=== PATIENT | male | born 1980 | race Caucasian/White ===

== ENCOUNTER 2018-10-12 08:12 | Inpatient (IN) | payer SELFPAY ==
[2018-10-12 08:54] VITALS: BMI 26.4
--- NOTE | 2018-10-12 09:17 | HP ---
CIWA Score Nausea/Vomitin-No Nausea/No Vomiting Muscle Tremors: None Anxiety: 4-Mod. Anxious/Guarded Agitation: 4-Moderately Restless Paroxysmal Sweats: No Perspiration Orientation: 1-Uncertain about Date Tacttile Disturbances: 0-None Auditory Disturbances: 0-None Visual Disturbances: 0-None Headache: 0-None Present CIWA-Ar Total Score: 9 - Admission Criteria OASAS Guidelines: Admission for Medically Managed Detox: Requires at least one of the followin. CIWA greater than 12 2. Seizures within the past 24 hours 3. Delirium tremens within the past 24 hours 4. Hallucinations within the past 24 hours 5. Acute intervention needed for co occurring medical disorder 6. Acute intervention needed for co occurring psychiatric disorder 7. Severe withdrawal that cannot be handled at a lower level of care (continued vomiting, continued diarrhea, abnormal vital signs) requiring intravenous medication and/or fluids 8. Admission ROS S - HPI Allergies/Adverse Reactions: Allergies Allergy/AdvReac Type Severity Reaction Status Date / Time shellfish derived Allergy Severe Hives Verified 10/12/18 08:43 No Known Drug Allergies Allergy Verified 10/12/18 10:00 History of Present Illness: pt here requesting detox from etoh use , reports use x 16 years , current daily use 1 pint liquor /day , latest use this morning , reports was in detox @ [facility] on Saturday , left AMA after 2 - day stay , relapsed in the evening of the day of d/c , current symptoms as above . Denies seizures , blackouts , + tremors , reports prior sobriety x 9 mo , relapse 3 weeks ago 2/2 family situation . Starts drinking upon awakening . cocaine : 500$ every 2-3 days . tobacco :" sometimes " PMHX : asthma PSHX : denies PSych : denies Exam Limitations: No Limitations - Ebola screening Have you traveled outside of the country in the last 21 days: No (N) Have you had contact with anyone from an Ebola affected area: No Do you have a fever: No - Review of Systems Constitutional: No Symptoms Reported EENT: reports: No Symptoms Reported Respiratory: reports: No Symptoms reported Cardiac: reports: No Symptoms Reported GI: reports: No Symptoms Reported : reports: No Symptoms Reported Musculoskeletal: reports: Back Pain (x1 week after jumping off roof into shallow pool , pain rated as 8/10 , constant .) Integumentary: reports: No Symptoms Reported Neuro: reports: No Symptoms reported Endocrine: reports: No Symptoms Reported Psychiatric: reports: Orientated x3, Agitated, Anxious Patient History - Smoking Cessation Smoking history: Current some day smoker Have you smoked in the past 12 months: No Hx Chewing Tobacco Use: No Initiated information on smoking cessation: No - Substances abused Alcohol Substance route: Oral Frequency: Daily Amount used: 5 (40ounces) , 1 pint Age of first use: 10 Date of last use: 10/12/18 Cocaine Substance route: Inhalation Frequency: 3-6 times per week Amount used: $500 Age of first use: 23 Date of last use: 10/11/18 Admission Physical Exam BHS - Vital Signs Vital Signs: Vital Signs - 24 hr 10/12/18 08:42 Temperature 97.2 F L Pulse Rate 91 H Respiratory 18 Rate Blood Pressure 110/71 - Physical General Appearance: Yes: Mild Distress, Irritable, Anxious HEENTM: Yes: EOMI, Normocephalic, Normal Voice Respiratory: Yes: Lungs Clear, Normal Breath Sounds, No Respiratory Distress, No Accessory Muscle Use Neck: Yes: No masses,lesions,Nodules, Trachea in good position Cardiology: Yes: Regular Rhythm, Regular Rate, S1, S2 Abdominal: Yes: Non Tender, Soft Back: Yes: Muscle Spasm (thoraco-lumbar paraspinal) Musculoskeletal: Yes: Gait Steady Extremities: Yes: Normal Range of Motion, Non-Tender Neurological: Yes: Alert, Motor Strength 5/5 Integumentary: Yes: Warm - Diagnostic (1) Alcohol dependence Current Visit: Yes Status: Acute Qualifiers: Substance use status: uncomplicated Qualified Code(s): F10.20 - Alcohol dependence, uncomplicated Breathalyzer - Breathalyzer Breathalyzer: 0.007 Inpatient Rehab Admission - Rehab Decision to Admit Inpatient rehab admission?: No
[2018-10-12] MEDS ORDERED: NICOTINE POLACRILEX 2 MG GUM BUC PRN (09:23)
[2018-10-12] MEDS ORDERED: MENTHOL/PHENOL 1 EACH UD MM PRN (09:23)
[2018-10-12] MEDS ORDERED: METHOCARBAMOL 500 MG TABLET PO PRN (09:23)
[2018-10-12] MEDS ORDERED: MAGNESIUM HYDROX 2400MG/30ML ORAL SUSPENSION 30 ML CUP PO PRN (09:23)
[2018-10-12] MEDS ORDERED: MAG HYDROX/AL HYDROX/SIMETH 30 ML UNIT-DOSE CUP PO PRN (09:23)
[2018-10-12] MEDS ORDERED: MAGNESIUM CITRATE 300 ML BOTTLE PO PRN (09:23)
[2018-10-12] MEDS ORDERED: BISMUTH SUBSALICYLATE 524 MG/30 ML UD PO PRN (09:23)
[2018-10-12] MEDS ORDERED: ACETAMINOPHEN 325 MG TABLET (FP) PO PRN ×2 (09:23)
[2018-10-12] MEDS ORDERED: ALBUTEROL SO4 0.083% IH SOL 2.5 MG/3 ML VIAL.NEB. NEB PRN (09:25)
[2018-10-12] MEDS: PRENATAL VITAMINS W/ FOLIC ACID TABLET (FP) PO SCH (10:33)
[2018-10-12] MEDS: diazePAM 5 MG TABLET PO SCH ×2 (15:00→22:38)
[2018-10-12] MEDS: THIAMINE HCL 100 MG TABLET (FP) PO SCH (22:38)
[2018-10-12] MEDS: MELATONIN 5 MG TABLETS PO PRN (22:39)
[2018-10-12] MEDS: ALBUTEROL SO4 8 GM HFA INHALER IH PRN (23:02)
[2018-10-13] MEDS: diazePAM 5 MG TABLET PO SCH ×3 (05:25→22:10)
[2018-10-13] MEDS: PRENATAL VITAMINS W/ FOLIC ACID TABLET (FP) PO SCH (09:21)
[2018-10-13] MEDS: diazePAM 5 MG TABLET PO PRN ×3 (09:23→20:35)
[2018-10-13 10:40] LABS: HEMATOCRIT 42.8 % (35.4-49); HEMOGLOBIN 14.4 GM/dL (11.7-16.9); MCH 27.9 pg (25.7-33.7); MCHC 33.8 g/dl (32.0-35.9); MEAN CELL VOLUME 82.5 fl (80-96); MEAN PLT VOLUME 8.4 fl (7.5-11.1); PLATELET COUNT 311 K/MM3 (134-434); RBC 5.19 M/mm3 (4.00-5.60); RDW 14.7 % (11.9-15.9); WHITE BLOOD COUNT 5.8 K/mm3 (4.0-10.0)
[2018-10-13 10:54] LABS: ALBUMIN 3.4 g/dl (3.4-5.0); BILIRUBIN,TOTAL 0.3 mg/dL (0.2-1); BLOOD UREA NITROGEN 15.3 mg/dL (7-18); CALCIUM 8.9 mg/dL (8.5-10.1); POTASSIUM 4.3 mmol/L (3.5-5.1); TOT PROT 6.3 g/dl (6.4-8.2)
--- NOTE | 2018-10-13 12:34 | PN ---
S CIWA - CIWA Score Nausea/Vomitin-Mild Nausea/No Vomiting Muscle Tremors: 3 Anxiety: 2 Agitation: 3 Paroxysmal Sweats: 1-Minimal Palms Moist Orientation: 1-Uncertain about Date Tacttile Disturbances: 1-Very Mild Itch/Numbness Auditory Disturbances: 0-None Visual Disturbances: 0-None Headache: 0-None Present CIWA-Ar Total Score: 12 BHS Progress Note (SOAP) Subjective: 38 years old male admitted on 10/12/18 for alcohol withdrawal sx history of asthma added to problem list as well as ventolin ordered Objective: 10/13/18 12:34 Vital Signs Temperature 97.7 F 10/13/18 09:11 Pulse Rate 91 H 10/13/18 09:11 Respiratory Rate 20 10/13/18 09:11 Blood Pressure 108/70 10/13/18 09:11 O2 Sat by Pulse Oximetry (%) Laboratory Last Values WBC 5.8 K/mm3 (4.0-10.0) 10/13/18 07:00 RBC 5.19 M/mm3 (4.00-5.60) 10/13/18 07:00 Hgb 14.4 GM/dL (11.7-16.9) 10/13/18 07:00 Hct 42.8 % (35.4-49) 10/13/18 07:00 MCV 82.5 fl (80-96) 10/13/18 07:00 MCH 27.9 pg (25.7-33.7) 10/13/18 07:00 MCHC 33.8 g/dl (32.0-35.9) 10/13/18 07:00 RDW 14.7 % (11.9-15.9) 10/13/18 07:00 Plt Count 311 K/MM3 (134-434) 10/13/18 07:00 MPV 8.4 fl (7.5-11.1) 10/13/18 07:00 Sodium 141 mmol/L (136-145) 10/13/18 07:00 Potassium 4.3 mmol/L (3.5-5.1) 10/13/18 07:00 Chloride 106 mmol/L (98-107) 10/13/18 07:00 Carbon Dioxide 29 mmol/L (21-32) 10/13/18 07:00 Anion Gap 5 MMOL/L (8-16) L 10/13/18 07:00 BUN 15.3 mg/dL (7-18) 10/13/18 07:00 Creatinine 1.0 mg/dL (0.55-1.3) 10/13/18 07:00 Est GFR (CKD-EPI)AfAm 108.63 10/13/18 07:00 Est GFR (CKD-EPI)NonAf 93.73 10/13/18 07:00 Random Glucose 92 mg/dL (74-106) 10/13/18 07:00 Calcium 8.9 mg/dL (8.5-10.1) 10/13/18 07:00 Total Bilirubin 0.3 mg/dL (0.2-1) 10/13/18 07:00 AST 9 U/L (15-37) L 10/13/18 07:00 ALT 19 U/L (13-61) 10/13/18 07:00 Alkaline Phosphatase 98 U/L (45-117) 10/13/18 07:00 Total Protein 6.3 g/dl (6.4-8.2) L 10/13/18 07:00 Albumin 3.4 g/dl (3.4-5.0) 10/13/18 07:00 RPR Titer Nonreactive (NONREACTIVE) 10/13/18 07:00 lab noted Assessment: 10/13/18 12:34 alcohol withdrawal sx Plan: continue alcohol detox
[2018-10-13] MEDS: THIAMINE HCL 100 MG TABLET (FP) PO SCH (22:11)
[2018-10-13] MEDS: MELATONIN 5 MG TABLETS PO PRN (22:11)
[2018-10-13] MEDS: ALBUTEROL SO4 8 GM HFA INHALER IH PRN (23:07)
[2018-10-14] MEDS: diazePAM 5 MG TABLET PO SCH ×2 (06:05→17:29)
[2018-10-14] MEDS: hydrOXYzine HCL 25 MG TABLET (FP) PO PRN ×2 (10:45→22:25)
[2018-10-14] MEDS: PRENATAL VITAMINS W/ FOLIC ACID TABLET (FP) PO SCH (10:45)
[2018-10-14] MEDS: diazePAM 5 MG TABLET PO PRN ×3 (10:47→20:08)
[2018-10-14] MEDS: IBUPROFEN 400 MG TABLET (FP) PO PRN ×2 (10:48→23:21)
--- NOTE | 2018-10-14 11:36 | PN ---
[facility] CIWA - CIWA Score Nausea/Vomitin-Mild Nausea/No Vomiting Muscle Tremors: 2 Anxiety: 3 Agitation: 3 Paroxysmal Sweats: 1-Minimal Palms Moist Orientation: 1-Uncertain about Date Tacttile Disturbances: 0-None Auditory Disturbances: 0-None Visual Disturbances: 0-None Headache: 0-None Present CIWA-Ar Total Score: 11 S Progress Note (SOAP) Subjective: negative x ray of the lower spine and right foot encourage warm and cold compress to paralower spine and right foot motrin if needed lidocan patch to lower back for comfort Objective: 10/14/18 11:35 Vital Signs Temperature 97.3 F L 10/14/18 09:09 Pulse Rate 84 10/14/18 09:09 Respiratory Rate 20 10/14/18 09:09 Blood Pressure 127/85 10/14/18 09:09 O2 Sat by Pulse Oximetry (%) Laboratory Last Values WBC 5.8 K/mm3 (4.0-10.0) 10/13/18 07:00 RBC 5.19 M/mm3 (4.00-5.60) 10/13/18 07:00 Hgb 14.4 GM/dL (11.7-16.9) 10/13/18 07:00 Hct 42.8 % (35.4-49) 10/13/18 07:00 MCV 82.5 fl (80-96) 10/13/18 07:00 MCH 27.9 pg (25.7-33.7) 10/13/18 07:00 MCHC 33.8 g/dl (32.0-35.9) 10/13/18 07:00 RDW 14.7 % (11.9-15.9) 10/13/18 07:00 Plt Count 311 K/MM3 (134-434) 10/13/18 07:00 MPV 8.4 fl (7.5-11.1) 10/13/18 07:00 Sodium 141 mmol/L (136-145) 10/13/18 07:00 Potassium 4.3 mmol/L (3.5-5.1) 10/13/18 07:00 Chloride 106 mmol/L (98-107) 10/13/18 07:00 Carbon Dioxide 29 mmol/L (21-32) 10/13/18 07:00 Anion Gap 5 MMOL/L (8-16) L 10/13/18 07:00 BUN 15.3 mg/dL (7-18) 10/13/18 07:00 Creatinine 1.0 mg/dL (0.55-1.3) 10/13/18 07:00 Est GFR (CKD-EPI)AfAm 108.63 10/13/18 07:00 Est GFR (CKD-EPI)NonAf 93.73 10/13/18 07:00 Random Glucose 92 mg/dL (74-106) 10/13/18 07:00 Calcium 8.9 mg/dL (8.5-10.1) 10/13/18 07:00 Total Bilirubin 0.3 mg/dL (0.2-1) 10/13/18 07:00 AST 9 U/L (15-37) L 10/13/18 07:00 ALT 19 U/L (13-61) 10/13/18 07:00 Alkaline Phosphatase 98 U/L (45-117) 10/13/18 07:00 Total Protein 6.3 g/dl (6.4-8.2) L 10/13/18 07:00 Albumin 3.4 g/dl (3.4-5.0) 10/13/18 07:00 RPR Titer Nonreactive (NONREACTIVE) 10/13/18 07:00 lab noted Assessment: 10/14/18 11:36 alcohol withdrawal sx Plan: continue alcohol detox
[2018-10-14] MEDS: LIDOCAINE 5% TOPICAL PATCH TP SCH (12:09)
[2018-10-14] MEDS ORDERED: LIDOCAINE PATCH REMOVAL MC SCH (22:00)
[2018-10-14] MEDS: THIAMINE HCL 100 MG TABLET (FP) PO SCH (22:24)
[2018-10-14] MEDS: MELATONIN 5 MG TABLETS PO PRN (22:25)
[2018-10-15] MEDS: diazePAM 5 MG TABLET PO PRN (00:04)
[2018-10-15] MEDS ORDERED: diazePAM 5 MG TABLET PO ONE (06:00)
[2018-10-15] MEDS: IBUPROFEN 400 MG TABLET (FP) PO PRN (06:15)
[2018-10-15 09:21] VITALS: BP 120/84; PULSE 89; TEMP 97
[2018-10-15] MEDS: LIDOCAINE 5% TOPICAL PATCH TP SCH (11:38)
[2018-10-15] MEDS: PRENATAL VITAMINS W/ FOLIC ACID TABLET (FP) PO SCH (11:38)
--- NOTE | 2018-10-15 13:58 | DS ---
[facility] Detox Discharge Summary Admission Date: 10/12/18 Discharge Date: 10/15/18 - History Present History: Alcohol Dependence Additional Comments: 38 years old male admitted on 10/12/18 for alcohol withdrawal sx doing well with valium detox regimen no complication throughout the detox stay alert oriented x 3 S1S1 clear lung bilaterally abdomen soft none tenderness aftercare [facility] with transportation provided Pertinent Past History: asthma - Physical Exam Results Vital Signs: Vital Signs Temperature 97.0 F L 10/15/18 09:20 Pulse Rate 89 10/15/18 09:20 Respiratory Rate 18 10/15/18 09:20 Blood Pressure 120/84 10/15/18 09:20 O2 Sat by Pulse Oximetry (%) Pertinent Admission Physical Exam Findings: alcohol withdrawal sx Laboratory Last Values WBC 5.8 K/mm3 (4.0-10.0) 10/13/18 07:00 RBC 5.19 M/mm3 (4.00-5.60) 10/13/18 07:00 Hgb 14.4 GM/dL (11.7-16.9) 10/13/18 07:00 Hct 42.8 % (35.4-49) 10/13/18 07:00 MCV 82.5 fl (80-96) 10/13/18 07:00 MCH 27.9 pg (25.7-33.7) 10/13/18 07:00 MCHC 33.8 g/dl (32.0-35.9) 10/13/18 07:00 RDW 14.7 % (11.9-15.9) 10/13/18 07:00 Plt Count 311 K/MM3 (134-434) 10/13/18 07:00 MPV 8.4 fl (7.5-11.1) 10/13/18 07:00 Sodium 141 mmol/L (136-145) 10/13/18 07:00 Potassium 4.3 mmol/L (3.5-5.1) 10/13/18 07:00 Chloride 106 mmol/L (98-107) 10/13/18 07:00 Carbon Dioxide 29 mmol/L (21-32) 10/13/18 07:00 Anion Gap 5 MMOL/L (8-16) L 10/13/18 07:00 BUN 15.3 mg/dL (7-18) 10/13/18 07:00 Creatinine 1.0 mg/dL (0.55-1.3) 10/13/18 07:00 Est GFR (CKD-EPI)AfAm 108.63 10/13/18 07:00 Est GFR (CKD-EPI)NonAf 93.73 10/13/18 07:00 Random Glucose 92 mg/dL (74-106) 10/13/18 07:00 Calcium 8.9 mg/dL (8.5-10.1) 10/13/18 07:00 Total Bilirubin 0.3 mg/dL (0.2-1) 10/13/18 07:00 AST 9 U/L (15-37) L 10/13/18 07:00 ALT 19 U/L (13-61) 10/13/18 07:00 Alkaline Phosphatase 98 U/L (45-117) 10/13/18 07:00 Total Protein 6.3 g/dl (6.4-8.2) L 10/13/18 07:00 Albumin 3.4 g/dl (3.4-5.0) 10/13/18 07:00 RPR Titer Nonreactive (NONREACTIVE) 10/13/18 07:00 lab noted - Treatment Hospital Course: Detox Protocol Followed, Detoxed Safely, Responded well, Discharged Condition Good, Rehab Referral Accepted Patient has Accepted a Rehab Referral to: [facility] - Medication Discharge Medications: Ambulatory Orders Albuterol Sulfate Inhaler - [Ventolin HFA Inhaler -] 1 - 2 inh PO Q4H #1 inhaler 10/14/18 - Diagnosis (1) Asthma Status: Chronic Qualifiers: Asthma severity: mild Asthma persistence: intermittent Asthma complication type: with status asthmaticus Qualified Code(s): J45.22 - Mild intermittent asthma with status asthmaticus (2) Alcohol dependence Status: Acute Qualifiers: Substance use status: uncomplicated Qualified Code(s): F10.20 - Alcohol dependence, uncomplicated - AMA Did Patient Leave Against Medical Advice: No
== END 2018-10-15 13:25 | disposition home or self-care (01) | DRG 775 ==
LOC: YASAS 08:12 → Y3N 09:32
PROVIDERS: ADMIT Surgery; ATTEND Surgery
PROC: HZ2ZZZZ Detoxification Services for Substance Abuse Treatment (ICD-10-PCS; principal; 2018-10-12)
DX: F10.230 Alcohol dependence with withdrawal, uncomplicated (principal); J45.22 Mild intermittent asthma with status asthmaticus; Z91.013 Allergy to seafood
CPT/HCPCS: 36415; 72220-TC-FY; 73630-TC-RT-FY; 80053; 85027; 86593; 94640

== ENCOUNTER 2022-07-28 14:28 | Inpatient (IN) | payer BC ==
[~2022-07-28 14:28] MED LIST: TRIMETHOBENZAMIDE HCL 200MG/2ML INJ IM ONE
[2022-07-28 16:24] VITALS: BMI 23.7
[2022-07-28] MEDS ORDERED: LOPERAMIDE HCL 2 MG CAPSULE PO PRN (16:43)
[2022-07-28] MEDS ORDERED: MAG HYDROX/AL HYDROX/SIMETH 30 ML UNIT-DOSE CUP PO PRN (16:43)
[2022-07-28] MEDS ORDERED: NALOXONE HCL 0.4 MG/ML VIAL IM PRN (16:43)
[2022-07-28] MEDS ORDERED: BENZONATATE 200 MG CAPSULE PO PRN (16:43)
[2022-07-28] MEDS ORDERED: NICOTINE POLACRILEX 2 MG GUM BUC PRN (16:43)
[2022-07-28] MEDS ORDERED: DICYCLOMINE HCL 10 MG CAPSULE PO PRN (16:43)
[2022-07-28] MEDS ORDERED: NALOXONE HCL (KLOXXADO) 8 MG SPRAY NS PRN (16:43)
[2022-07-28] MEDS ORDERED: MAGNESIUM HYDROX 2400MG/30ML ORAL SUSPENSION 30 ML CUP PO PRN (16:43)
[2022-07-28] MEDS ORDERED: BENZOCAINE/MENTHOL (CHLORASEPTIC ) LOZENGE MM PRN (16:43)
[2022-07-28] MEDS ORDERED: ACETAMINOPHEN 325 MG TABLET (FP) PO PRN (16:43)
[2022-07-28] MEDS ORDERED: ONDANSETRON *ODT* 4 MG TABLET SL PRN (16:43)
[2022-07-28] MEDS ORDERED: BISMUTH SUBSALICYLATE 524 MG/30 ML PO PRN (16:43)
[2022-07-28] MEDS ORDERED: guaiFENesin 600 MG TABLET.ER (FP) PO PRN (16:43)
[2022-07-28] MEDS ORDERED: POLYETHYLENE GLYCOL (HEALTHYLAX) 3350 17 GM PACKET PO PRN (16:43)
[2022-07-28] MEDS ORDERED: IBUPROFEN 400 MG TABLET (FP) PO PRN (16:43)
[2022-07-28] MEDS ORDERED: LORazepam 2 MG TABLET ONE (17:01)
[2022-07-28] MEDS: LORazepam 2 MG TABLET PO SCH ×2 (17:06→22:04)
[2022-07-28] MEDS: LORazepam 1 MG TABLET PO PRN (19:37)
[2022-07-28] MEDS: MELATONIN 5 MG TABLETS PO SCH (22:04)
[2022-07-28] MEDS: THIAMINE HCL 100 MG TABLET (FP) PO SCH (22:04)
[2022-07-28] MEDS: METHOCARBAMOL 500 MG TABLET PO PRN (22:04)
[2022-07-28] MEDS: hydrOXYzine PAMOATE 25 MG CAPSULE (FP) PO PRN (23:53)
[2022-07-29] MEDS: LORazepam 2 MG TABLET PO SCH ×4 (05:24→22:16)
[2022-07-29] MEDS: METHOCARBAMOL 500 MG TABLET PO PRN ×3 (05:26→22:16)
[2022-07-29] MEDS: PRENATAL VITAMINS W/ FOLIC ACID TABLET (FP) PO SCH (10:49)
[2022-07-29] MEDS: hydrOXYzine PAMOATE 25 MG CAPSULE (FP) PO PRN (10:53)
[2022-07-29] MEDS: IBUPROFEN 600 MG TABLET (FP) PO PRN ×2 (10:53→20:02)
[2022-07-29 11:01] LABS: HEMOGLOBIN 13.3 GM/dL (11.7-16.9); MCH 27.6 pg (25.7-33.7); MCHC 34.1 g/dl (32.0-35.9); MEAN CELL VOLUME 81.1 fl (80-96); MEAN PLT VOLUME 8.3 fl (7.5-11.1); PLATELET COUNT 215 10^3/uL (134-434); RBC 4.81 M/mm3 (4.00-5.60); RDW 14.1 % (11.9-15.9); WHITE BLOOD COUNT 5.7 K/mm3 (4.0-10.0)
[2022-07-29] MEDS: NICOTINE 7 MG/24 HOURS TOPICAL PATCH TD SCH (11:06)
[2022-07-29 11:08] LABS: CALCIUM 8.8 mg/dL (8.5-10.1)
[2022-07-29 11:09] LABS: ALBUMIN 3.2 g/dl (3.4-5.0)
[2022-07-29] MEDS: ALBUTEROL SO4 HFA INHALER IH SCH ×5 (11:11→22:18)
[2022-07-29 11:13] LABS: BILIRUBIN,TOTAL 1.7 mg/dL (0.2-1); TOT PROT 6.3 g/dl (6.4-8.2)
[2022-07-29] MEDS: LORazepam 1 MG TABLET PO PRN ×2 (12:43→19:58)
[2022-07-29] MEDS: LACTULOSE 20 GM/30 ML UDC (FOR ORAL USE ONLY) PO SCH ×2 (14:43→22:16)
[2022-07-29] MEDS: MELATONIN 5 MG TABLETS PO SCH (22:16)
[2022-07-29] MEDS: THIAMINE HCL 100 MG TABLET (FP) PO SCH (22:16)
[2022-07-30] MEDS: LORazepam 1 MG TABLET PO PRN ×2 (02:34→12:03)
[2022-07-30] MEDS: ALBUTEROL SO4 HFA INHALER IH SCH ×3 (02:37→10:13)
[2022-07-30] MEDS: LACTULOSE 20 GM/30 ML UDC (FOR ORAL USE ONLY) PO SCH (05:31)
[2022-07-30] MEDS: LORazepam 1 MG TABLET PO SCH ×2 (05:31→10:11)
[2022-07-30] MEDS: METHOCARBAMOL 500 MG TABLET PO PRN ×2 (05:32→12:02)
[2022-07-30] MEDS: IBUPROFEN 600 MG TABLET (FP) PO PRN (05:32)
[2022-07-30] MEDS: NICOTINE 7 MG/24 HOURS TOPICAL PATCH TD SCH (10:10)
[2022-07-30] MEDS: PRENATAL VITAMINS W/ FOLIC ACID TABLET (FP) PO SCH (10:10)
[2022-07-30 12:59] VITALS: BP 115/70; PULSE 75; RESP 17; TEMP 98.4
[2022-07-31] MEDS ORDERED: LORazepam 0.5 MG TABLET PO PRN
[2022-07-31] MEDS ORDERED: LORazepam 0.5 MG TABLET PO SCH (05:00)
[2022-08-01] MEDS ORDERED: LORazepam 0.5 MG TABLET PO ONE (05:00)
== END 2022-07-30 13:22 | disposition left against medical advice (07) | DRG 770 ==
LOC: YASAS 14:28 → Y3N 17:03
PROVIDERS: ADMIT Allergy & Immunology; ATTEND Surgery
PROC: HZ2ZZZZ Detoxification Services for Substance Abuse Treatment (ICD-10-PCS; principal; 2022-07-28)
DX: F10.230 Alcohol dependence with withdrawal, uncomplicated (principal); F17.210 Nicotine dependence, cigarettes, uncomplicated; F41.9 Anxiety disorder, unspecified; F32.A Depression, unspecified; J45.20 Mild intermittent asthma, uncomplicated; R17 Unspecified jaundice; R79.89 Other specified abnormal findings of blood chemistry; Z59.02 Unsheltered homelessness
CPT/HCPCS: 36415; 80053; 82140; 85027; 86780; C9803-CS; Q0162; U0003; U0005

== ENCOUNTER 2022-08-08 11:06 | Inpatient (IN) | payer BC ==
[2022-08-08 12:24] VITALS: BMI 24.4
[2022-08-08] MEDS ORDERED: NALOXONE HCL (KLOXXADO) 8 MG SPRAY NS PRN (15:30)
[2022-08-08] MEDS ORDERED: NICOTINE 10 MG CARTRIDGE (INHALER) IH PRN (15:30)
[2022-08-08] MEDS ORDERED: ONDANSETRON *ODT* 4 MG TABLET SL PRN (15:30)
[2022-08-08] MEDS ORDERED: COLLOIDAL OATMEAL 1 BAR EACH TP PRN (15:30)
[2022-08-08] MEDS ORDERED: DICYCLOMINE HCL 10 MG CAPSULE PO PRN (15:30)
[2022-08-08] MEDS ORDERED: LOPERAMIDE HCL 2 MG CAPSULE PO PRN (15:30)
[2022-08-08] MEDS ORDERED: guaiFENesin 600 MG TABLET.ER (FP) PO PRN (15:30)
[2022-08-08] MEDS ORDERED: chlordiazePOXIDE HCL 25 MG CAPSULE PO ONE (15:30)
[2022-08-08] MEDS ORDERED: NALOXONE HCL 0.4 MG/ML VIAL IM PRN (15:30)
[2022-08-08] MEDS ORDERED: IBUPROFEN 600 MG TABLET (FP) PO PRN (15:30)
[2022-08-08] MEDS ORDERED: IBUPROFEN 400 MG TABLET (FP) PO PRN (15:30)
[2022-08-08] MEDS ORDERED: POLYETHYLENE GLYCOL (HEALTHYLAX) 3350 17 GM PACKET PO PRN (15:30)
[2022-08-08] MEDS ORDERED: ACETAMINOPHEN 325 MG TABLET (FP) PO PRN (15:30)
[2022-08-08] MEDS ORDERED: BENZOCAINE/MENTHOL (CHLORASEPTIC ) LOZENGE MM PRN (15:30)
[2022-08-08] MEDS ORDERED: BISMUTH SUBSALICYLATE 262 MG/15 ML BTL PO PRN (15:30)
[2022-08-08] MEDS ORDERED: AMMONIUM LACTATE 12% LOTION 225 GM BOTTLE TP PRN (15:30)
[2022-08-08] MEDS ORDERED: MAG HYDROX/AL HYDROX/SIMETH 30 ML UNIT-DOSE CUP PO PRN (15:30)
[2022-08-08] MEDS ORDERED: BENZONATATE 200 MG CAPSULE PO PRN (15:30)
[2022-08-08] MEDS ORDERED: MAGNESIUM HYDROX 2400MG/30ML ORAL SUSPENSION 30 ML CUP PO PRN (15:30)
[2022-08-08] MEDS ORDERED: chlordiazePOXIDE HCL 25 MG CAPSULE ONE (15:39)
[2022-08-08] MEDS ORDERED: ONDANSETRON *ODT* 4 MG TABLET ONE (15:40)
[2022-08-08] MEDS: chlordiazePOXIDE HCL 25 MG CAPSULE PO SCH ×2 (17:22→22:05)
[2022-08-08] MEDS: ALBUTEROL SO4 HFA INHALER IH SCH ×4 (17:25→23:54)
[2022-08-08] MEDS: METHOCARBAMOL 500 MG TABLET PO PRN (18:35)
[2022-08-08] MEDS ORDERED: THIAMINE HCL 100 MG TABLET (FP) PO SCH (22:00)
[2022-08-08] MEDS ORDERED: MELATONIN 5 MG TABLETS PO SCH (22:00)
[2022-08-09] MEDS: ALBUTEROL SO4 HFA INHALER IH SCH ×3 (04:38→10:54)
[2022-08-09] MEDS: chlordiazePOXIDE HCL 25 MG CAPSULE PO SCH ×2 (05:20→10:03)
[2022-08-09] MEDS: METHOCARBAMOL 500 MG TABLET PO PRN (07:12)
[2022-08-09 09:36] VITALS: BP 134/87; PULSE 92; RESP 17; TEMP 97.3
[2022-08-09] MEDS ORDERED: PRENATAL VITAMINS W/ FOLIC ACID TABLET (FP) PO SCH (10:00)
[2022-08-09 11:06] LABS: HEMATOCRIT 39.1 % (35.4-49); HEMOGLOBIN 13.4 GM/dL (11.7-16.9); MCH 28.3 pg (25.7-33.7); MCHC 34.3 g/dl (32.0-35.9); MEAN CELL VOLUME 82.5 fl (80-96); PLATELET COUNT 379 10^3/uL (134-434); RBC 4.74 M/mm3 (4.00-5.60); RDW 14.8 % (11.9-15.9); WHITE BLOOD COUNT 6.4 K/mm3 (4.0-10.0)
[2022-08-09 11:12] LABS: POTASSIUM 4.5 mmol/L (3.5-5.1)
[2022-08-09 11:26] LABS: ALBUMIN 3.4 g/dl (3.4-5.0); BLOOD UREA NITROGEN 8.6 mg/dL (7-18)
[2022-08-09 11:29] LABS: CREATININE 1.1 mg/dL (0.55-1.3)
[2022-08-09 11:31] LABS: BILIRUBIN,TOTAL 0.7 mg/dL (0.2-1)
[2022-08-10] MEDS ORDERED: chlordiazePOXIDE HCL 25 MG CAPSULE PO SCH (05:00)
[2022-08-11] MEDS ORDERED: chlordiazePOXIDE HCL 10 MG CAPSULE PO SCH (05:00)
[2022-08-12] MEDS ORDERED: chlordiazePOXIDE HCL 10 MG CAPSULE PO SCH (05:00)
[2022-08-13] MEDS ORDERED: chlordiazePOXIDE HCL 10 MG CAPSULE PO ONE (05:00)
== END 2022-08-09 10:54 | disposition left against medical advice (07) | DRG 770 ==
LOC: YASAS 11:06 → Y6N 15:40
PROVIDERS: ADMIT Allergy & Immunology; ATTEND Surgery
PROC: HZ2ZZZZ Detoxification Services for Substance Abuse Treatment (ICD-10-PCS; principal; 2022-08-08)
DX: F10.230 Alcohol dependence with withdrawal, uncomplicated (principal); F17.210 Nicotine dependence, cigarettes, uncomplicated; J45.20 Mild intermittent asthma, uncomplicated
CPT/HCPCS: 36415; 80053; 82140; 85027; 86780; 87811; C9803-CS; Q0162; U0003; U0005

== ENCOUNTER 2023-04-28 14:05 | Inpatient (IN) | payer OTHER ==
[2023-04-28 15:16] VITALS: BMI 27.1
[2023-04-28] MEDS ORDERED: MAG HYDROX/AL HYDROX/SIMETH 30 ML UNIT-DOSE CUP PO PRN (15:32)
[2023-04-28] MEDS ORDERED: DICYCLOMINE HCL 10 MG CAPSULE PO PRN (15:32)
[2023-04-28] MEDS ORDERED: hydrOXYzine PAMOATE 25 MG CAPSULE (FP) PO PRN (15:32)
[2023-04-28] MEDS ORDERED: METHOCARBAMOL 500 MG TABLET PO PRN (15:32)
[2023-04-28] MEDS ORDERED: guaiFENesin 600 MG TABLET.ER (FP) PO PRN (15:32)
[2023-04-28] MEDS ORDERED: IBUPROFEN 400 MG TABLET (FP) PO PRN (15:32)
[2023-04-28] MEDS ORDERED: MAGNESIUM HYDROX 2400MG/30ML ORAL SUSPENSION 30 ML CUP PO PRN (15:32)
[2023-04-28] MEDS ORDERED: BENZOCAINE/MENTHOL (CHLORASEPTIC ) LOZENGE MM PRN (15:32)
[2023-04-28] MEDS ORDERED: BISMUTH SUBSALICYLATE 524 MG/30 ML PO PRN (15:32)
[2023-04-28] MEDS ORDERED: POLYETHYLENE GLYCOL (HEALTHYLAX) 3350 17 GM PACKET PO PRN (15:32)
[2023-04-28] MEDS ORDERED: IBUPROFEN 600 MG TABLET (FP) PO PRN (15:32)
[2023-04-28] MEDS ORDERED: BENZONATATE 200 MG CAPSULE PO PRN (15:32)
[2023-04-28] MEDS ORDERED: ACETAMINOPHEN 325 MG TABLET (FP) PO PRN (15:32)
[2023-04-28] MEDS ORDERED: LOPERAMIDE HCL 2 MG CAPSULE PO PRN (15:32)
[2023-04-28] MEDS ORDERED: P-EPHED 60MG/TRIPROLIDI 2.5MG TABLET PO PRN (15:32)
[2023-04-28] MEDS ORDERED: hydrOXYzine PAMOATE 25 MG CAPSULE (FP) PO ONE (15:57)
[2023-04-28] MEDS ORDERED: METHOCARBAMOL 500 MG TABLET ONE (16:02)
[2023-04-28] MEDS ORDERED: chlordiazePOXIDE HCL 25 MG CAPSULE PO PRN (16:03)
[2023-04-28] MEDS ORDERED: ONDANSETRON *ODT* 4 MG TABLET ONE (16:03)
[2023-04-28] MEDS: ONDANSETRON *ODT* 4 MG TABLET SL PRN (16:10)
[2023-04-28] MEDS: ALBUTEROL SO4 HFA INHALER IH SCH ×3 (16:38→22:41)
[2023-04-28] MEDS: MELATONIN 5 MG TABLETS PO SCH (22:40)
[2023-04-28] MEDS: chlordiazePOXIDE HCL 25 MG CAPSULE PO SCH (22:41)
[2023-04-28] MEDS: THIAMINE HCL 100 MG TABLET (FP) PO SCH (22:41)
[2023-04-29] MEDS: ALBUTEROL SO4 HFA INHALER IH SCH ×6 (03:20→22:34)
[2023-04-29] MEDS: chlordiazePOXIDE HCL 25 MG CAPSULE PO SCH ×4 (05:31→22:25)
[2023-04-29 10:14] LABS: HEMATOCRIT 39.5 % (35.4-49); HEMOGLOBIN 13.5 GM/dL (11.7-16.9); MCH 28.1 pg (25.7-33.7); MCHC 34.1 g/dl (32.0-35.9); MEAN CELL VOLUME 82.4 fl (80-96); MEAN PLT VOLUME 8.5 fl (7.5-11.1); PLATELET COUNT 292 10^3/uL (134-434); RDW 13.7 % (11.9-15.9)
[2023-04-29] MEDS: PRENATAL VITAMINS W/ FOLIC ACID TABLET (FP) PO SCH (10:14)
[2023-04-29] MEDS: ONDANSETRON *ODT* 4 MG TABLET SL PRN (10:16)
[2023-04-29 10:18] LABS: POTASSIUM 4.3 mmol/L (3.5-5.1)
[2023-04-29 10:23] LABS: CALCIUM 8.6 mg/dL (8.5-10.1)
[2023-04-29 10:24] LABS: ALBUMIN 3.3 g/dl (3.4-5.0); BLOOD UREA NITROGEN 12.1 mg/dL (7-18)
[2023-04-29 10:28] LABS: BILIRUBIN,TOTAL 0.9 mg/dL (0.2-1)
[2023-04-29 10:29] LABS: TOT PROT 6.3 g/dl (6.4-8.2)
[2023-04-29] MEDS: MELATONIN 5 MG TABLETS PO SCH (22:25)
[2023-04-29] MEDS: THIAMINE HCL 100 MG TABLET (FP) PO SCH (22:26)
[2023-04-30] MEDS: ALBUTEROL SO4 HFA INHALER IH SCH ×3 (02:33→10:30)
[2023-04-30] MEDS: chlordiazePOXIDE HCL 25 MG CAPSULE PO SCH ×2 (05:26→10:29)
[2023-04-30 08:47] VITALS: BP 117/60; PULSE 62; RESP 16; TEMP 98
[2023-04-30] MEDS: PRENATAL VITAMINS W/ FOLIC ACID TABLET (FP) PO SCH (10:29)
[2023-05-01] MEDS ORDERED: chlordiazePOXIDE HCL 10 MG CAPSULE PO PRN
[2023-05-01] MEDS ORDERED: chlordiazePOXIDE HCL 10 MG CAPSULE PO SCH (05:00)
[2023-05-02] MEDS ORDERED: chlordiazePOXIDE HCL 10 MG CAPSULE PO SCH (05:00)
[2023-05-03] MEDS ORDERED: chlordiazePOXIDE HCL 10 MG CAPSULE PO ONE (05:00)
== END 2023-04-30 10:55 | disposition left against medical advice (07) | DRG 770 ==
LOC: YASAS 14:05 → Y3N 16:46
PROVIDERS: ADMIT Allergy & Immunology; ATTEND Allergy & Immunology
PROC: HZ2ZZZZ Detoxification Services for Substance Abuse Treatment (ICD-10-PCS; principal; 2023-04-28)
DX: F10.230 Alcohol dependence with withdrawal, uncomplicated (principal); F14.10 Cocaine abuse, uncomplicated; Z72.0 Tobacco use
CPT/HCPCS: 36415; 80053; 85027; 86780; 87635; 87811; Q0162

== ENCOUNTER 2023-06-06 10:16 | Inpatient (IN) | payer OTHER ==
[2023-06-06 11:00] VITALS: BMI 24.6
[2023-06-06] MEDS ORDERED: BISMUTH SUBSALICYLATE 524 MG/30 ML PO PRN (13:27)
[2023-06-06] MEDS ORDERED: POLYETHYLENE GLYCOL (HEALTHYLAX) 3350 17 GM PACKET PO PRN (13:27)
[2023-06-06] MEDS ORDERED: NALOXONE HCL (KLOXXADO) 8 MG SPRAY NS PRN (13:27)
[2023-06-06] MEDS ORDERED: LOPERAMIDE HCL 2 MG CAPSULE PO PRN (13:27)
[2023-06-06] MEDS ORDERED: MAGNESIUM HYDROX 2400MG/30ML ORAL SUSPENSION 30 ML CUP PO PRN (13:27)
[2023-06-06] MEDS ORDERED: ACETAMINOPHEN 325 MG TABLET (FP) PO PRN (13:27)
[2023-06-06] MEDS ORDERED: BENZOCAINE/MENTHOL (CHLORASEPTIC ) LOZENGE MM PRN (13:27)
[2023-06-06] MEDS ORDERED: BENZONATATE 200 MG CAPSULE PO PRN (13:27)
[2023-06-06] MEDS ORDERED: guaiFENesin 600 MG TABLET.ER (FP) PO PRN (13:27)
[2023-06-06] MEDS ORDERED: IBUPROFEN 400 MG TABLET (FP) PO PRN (13:27)
[2023-06-06] MEDS ORDERED: NALOXONE HCL 0.4 MG/ML VIAL IM PRN (13:27)
[2023-06-06] MEDS ORDERED: MAG HYDROX/AL HYDROX/SIMETH 30 ML UNIT-DOSE CUP PO PRN (13:27)
[2023-06-06] MEDS: TRIMETHOBENZAMIDE HCL 200MG/2ML INJ IM ONE (13:36)
[2023-06-06] MEDS: LORazepam 2 MG/ML SDV VIAL IM ONE (14:47)
[2023-06-06] MEDS: METHOCARBAMOL 500 MG TABLET PO PRN (17:11)
[2023-06-06] MEDS: chlordiazePOXIDE HCL 25 MG CAPSULE PO SCH (17:11)
[2023-06-06] MEDS: hydrOXYzine PAMOATE 25 MG CAPSULE (FP) PO PRN (17:12)
[2023-06-06] MEDS: MELATONIN 5 MG TABLETS PO SCH (22:21)
[2023-06-06] MEDS: THIAMINE HCL 100 MG TABLET (FP) PO SCH (22:21)
[2023-06-06] MEDS: IBUPROFEN 600 MG TABLET (FP) PO PRN (22:21)
[2023-06-07] MEDS: PRENATAL VITAMINS W/ FOLIC ACID TABLET (FP) PO SCH (10:16)
[2023-06-07 12:49] LABS: HEMATOCRIT 39.1 % (35.4-49); HEMOGLOBIN 13.1 GM/dL (11.7-16.9); MCH 28.8 pg (25.7-33.7); MCHC 33.5 g/dl (32.0-35.9); MEAN CELL VOLUME 85.9 fl (80-96); MEAN PLT VOLUME 8.9 fl (7.5-11.1); PLATELET COUNT 225 10^3/uL (134-434); RBC 4.55 M/mm3 (4.00-5.60); RDW 16.5 % (11.9-15.9); WHITE BLOOD COUNT 5.5 K/mm3 (4.0-10.0)
[2023-06-07 13:08] LABS: POTASSIUM 3.8 mmol/L (3.5-5.1)
[2023-06-07 13:10] LABS: BLOOD UREA NITROGEN 14.5 mg/dL (7-18); CALCIUM 8.7 mg/dL (8.5-10.1)
[2023-06-07 13:11] LABS: ALBUMIN 3.6 g/dl (3.4-5.0)
[2023-06-07 13:14] LABS: CREATININE 0.9 mg/dL (0.55-1.3)
[2023-06-07 13:15] LABS: TOT PROT 6.8 g/dl (6.4-8.2)
[2023-06-07] MEDS: ONDANSETRON *ODT* 4 MG TABLET SL PRN (15:19)
[2023-06-07] MEDS: chlordiazePOXIDE HCL 25 MG CAPSULE PO PRN (19:56)
[2023-06-08] MEDS: chlordiazePOXIDE HCL 25 MG CAPSULE PO SCH (05:40)
[2023-06-08] MEDS: DICYCLOMINE HCL 10 MG CAPSULE PO PRN (05:42)
[2023-06-08] MEDS: LACTULOSE 20 GM/30 ML UDC (FOR ORAL USE ONLY) PO SCH (22:19)
[2023-06-09] MEDS: chlordiazePOXIDE HCL 10 MG CAPSULE PO SCH (05:52)
[2023-06-09] MEDS: chlordiazePOXIDE HCL 10 MG CAPSULE PO PRN (13:07)
[2023-06-09] MEDS ORDERED: ALBUTEROL SO4 HFA INHALER IH PRN (15:16)
[2023-06-09] MEDS ORDERED: LORazepam 1 MG TABLET PO PRN (15:27)
[2023-06-09] MEDS: hydrOXYzine PAMOATE 25 MG CAPSULE (FP) PO PRN (15:51)
[2023-06-09] MEDS: LORazepam 1 MG TABLET PO SCH (17:17)
[2023-06-09] MEDS: SUVOREXANT 10 MG TABLET PO PRN (22:18)
[2023-06-10] MEDS ORDERED: chlordiazePOXIDE HCL 10 MG CAPSULE PO SCH (05:00)
[2023-06-10] MEDS: LORazepam 0.5 MG TABLET PO SCH (05:48)
[2023-06-10] MEDS: NALTREXONE HCL 50 MG TABLET PO SCH (16:01)
[2023-06-11] MEDS ORDERED: chlordiazePOXIDE HCL 10 MG CAPSULE PO ONE (05:00)
[2023-06-11] MEDS: LORazepam 0.5 MG TABLET PO ONE (05:26)
[2023-06-11 09:24] VITALS: RESP 18
[2023-06-11 09:28] VITALS: BP 141/81; PULSE 85; TEMP 98.4
== END 2023-06-11 09:24 | disposition home or self-care (01) | DRG 774 ==
LOC: YASAS 10:16 → Y6N 14:04
PROVIDERS: ADMIT Allergy & Immunology; ATTEND Surgery
PROC: HZ2ZZZZ Detoxification Services for Substance Abuse Treatment (ICD-10-PCS; principal; 2023-06-06)
DX: F10.230 Alcohol dependence with withdrawal, uncomplicated (principal); F14.10 Cocaine abuse, uncomplicated; F10.24 Alcohol dependence with alcohol-induced mood disorder; F41.9 Anxiety disorder, unspecified; F32.A Depression, unspecified; E72.20 Disorder of urea cycle metabolism, unspecified; J45.20 Mild intermittent asthma, uncomplicated; R74.01 Elevation of levels of liver transaminase levels; Z87.891 Personal history of nicotine dependence; Z56.0 Unemployment, unspecified; Z59.00 Homelessness unspecified
CPT/HCPCS: 36415; 80053; 80305; 80307; 82140; 84450; 85027; 86780; 87635; 93005; 93010; Q0162

== ENCOUNTER 2023-10-29 10:20 | Inpatient (IN) | payer OTHER ==
[2023-10-29 10:57] VITALS: BMI 24.1
[2023-10-29] MEDS: TRIMETHOBENZAMIDE HCL 200MG/2ML INJ IM ONE (11:40)
[2023-10-29] MEDS ORDERED: DICYCLOMINE HCL 10 MG CAPSULE PO PRN (13:18)
[2023-10-29] MEDS ORDERED: BENZOCAINE/MENTHOL (CHLORASEPTIC ) LOZENGE MM PRN (13:18)
[2023-10-29] MEDS ORDERED: MAGNESIUM HYDROX 2400MG/30ML ORAL SUSPENSION 30 ML CUP PO PRN (13:18)
[2023-10-29] MEDS ORDERED: NALOXONE (NARCAN) HCL 4 MG/0.1 ML SPRAY NS PRN (13:18)
[2023-10-29] MEDS ORDERED: BENZONATATE 200 MG CAPSULE PO PRN (13:18)
[2023-10-29] MEDS ORDERED: BISMUTH SUBSALICYLATE 524 MG/30 ML PO PRN (13:18)
[2023-10-29] MEDS ORDERED: LOPERAMIDE HCL 2 MG CAPSULE PO PRN (13:18)
[2023-10-29] MEDS ORDERED: ACETAMINOPHEN 325 MG TABLET (FP) PO PRN (13:18)
[2023-10-29] MEDS ORDERED: POLYETHYLENE GLYCOL (HEALTHYLAX) 3350 17 GM PACKET PO PRN (13:18)
[2023-10-29] MEDS ORDERED: MAG HYDROX/AL HYDROX/SIMETH 30 ML UNIT-DOSE CUP PO PRN (13:18)
[2023-10-29] MEDS ORDERED: ONDANSETRON *ODT* 4 MG TABLET SL PRN (13:18)
[2023-10-29] MEDS ORDERED: IBUPROFEN 400 MG TABLET (FP) PO PRN (13:18)
[2023-10-29] MEDS ORDERED: NALOXONE HCL 0.4 MG/ML VIAL IM PRN (13:18)
[2023-10-29] MEDS ORDERED: guaiFENesin 600 MG TABLET.ER (FP) PO PRN (13:18)
[2023-10-29] MEDS ORDERED: hydrOXYzine PAMOATE 25 MG CAPSULE (FP) PO ONE (13:26)
[2023-10-29] MEDS ORDERED: chlordiazePOXIDE HCL 25 MG CAPSULE ONE (13:26)
[2023-10-29] MEDS: chlordiazePOXIDE HCL 25 MG CAPSULE PO PRN (13:28)
[2023-10-29] MEDS: hydrOXYzine PAMOATE 25 MG CAPSULE (FP) PO PRN (13:29)
[2023-10-29] MEDS: diazePAM 5 MG TABLET PO PRN (14:37)
[2023-10-29] MEDS ORDERED: chlordiazePOXIDE HCL 25 MG CAPSULE PO SCH (17:00)
[2023-10-29] MEDS: diazePAM 5 MG TABLET PO SCH (17:03)
[2023-10-29] MEDS: MELATONIN 5 MG TABLETS PO SCH (21:44)
[2023-10-29] MEDS: THIAMINE 100 MG TABLET PO SCH (21:44)
[2023-10-30] MEDS: IBUPROFEN 600 MG TABLET (FP) PO PRN (09:01)
[2023-10-30] MEDS: PRENATAL VITAMINS W/ FOLIC ACID TABLET (FP) PO SCH (10:13)
[2023-10-30 11:42] LABS: HEMATOCRIT 35.4 % (35.4-49); HEMOGLOBIN 11.7 GM/dL (11.7-16.9); MCH 28.6 pg (25.7-33.7); MCHC 33.2 g/dl (32.0-35.9); MEAN CELL VOLUME 86.1 fl (80-96); MEAN PLT VOLUME 8.8 fl (7.5-11.1); PLATELET COUNT 254 10^3/uL (134-434); RBC 4.11 M/mm3 (4.00-5.60); RDW 16.2 % (11.9-15.9); WHITE BLOOD COUNT 5.5 K/mm3 (4.0-10.0)
[2023-10-30 11:51] LABS: POTASSIUM 4.1 mmol/L (3.5-5.1)
[2023-10-30 11:55] LABS: CALCIUM 9.1 mg/dL (8.5-10.1)
[2023-10-30 11:56] LABS: ALBUMIN 3.9 g/dl (3.4-5.0); BLOOD UREA NITROGEN 15.7 mg/dL (7-18)
[2023-10-30 11:59] LABS: CREATININE 0.8 mg/dL (0.55-1.3)
[2023-10-30 12:00] LABS: BILIRUBIN,TOTAL 0.8 mg/dL (0.2-1); TOT PROT 7.3 g/dl (6.4-8.2)
[2023-10-30] MEDS: METHOCARBAMOL 500 MG TABLET PO PRN (13:45)
[2023-10-30] MEDS: PRAZOSIN HCL 1 MG CAPSULE PO SCH (22:11)
[2023-10-30] MEDS: traZODone HCL 50 MG TABLET (FP) PO SCH (22:12)
[2023-10-31] MEDS ORDERED: chlordiazePOXIDE HCL 25 MG CAPSULE PO SCH (05:00)
[2023-10-31] MEDS: diazePAM 5 MG TABLET PO SCH (05:53)
[2023-11-01] MEDS ORDERED: chlordiazePOXIDE HCL 10 MG CAPSULE PO PRN
[2023-11-01] MEDS ORDERED: chlordiazePOXIDE HCL 10 MG CAPSULE PO SCH (05:00)
[2023-11-01] MEDS: diazePAM 5 MG TABLET PO SCH (05:19)
[2023-11-01] MEDS: GABAPENTIN 100 MG CAPSULE PO SCH ×2 (16:03→22:09)
[2023-11-01] MEDS: METHOCARBAMOL 500 MG TABLET PO SCH (17:46)
[2023-11-01] MEDS ORDERED: QUEtiapine FUMARATE 50 MG TABLET PO PRN (19:33)
[2023-11-01] MEDS: traZODone HCL 100 MG TABLET (FP) PO SCH (22:08)
[2023-11-01] MEDS: PRAZOSIN HCL 5 MG CAPSULE PO SCH (22:09)
[2023-11-02] MEDS ORDERED: chlordiazePOXIDE HCL 10 MG CAPSULE PO SCH (05:00)
[2023-11-02] MEDS: diazePAM 5 MG TABLET PO ONE (05:25)
[2023-11-02 06:22] VITALS: RESP 17
[2023-11-02 09:12] VITALS: TEMP 96.9
[2023-11-02 12:46] VITALS: BP 112/65; PULSE 84
[2023-11-02] MEDS: GABAPENTIN 300 MG CAPSULE PO SCH (13:14)
[2023-11-02] MEDS ORDERED: QUEtiapine FUMARATE 100 MG TABLET (FP) PO SCH (22:00)
[2023-11-03] MEDS ORDERED: chlordiazePOXIDE HCL 10 MG CAPSULE PO ONE (05:00)
== END 2023-11-02 16:07 | disposition home or self-care (01) | DRG 775 ==
LOC: YASAS 10:20 → Y3N 13:29
PROVIDERS: ADMIT Allergy & Immunology; ATTEND Surgery
PROC: HZ2ZZZZ Detoxification Services for Substance Abuse Treatment (ICD-10-PCS; principal; 2023-10-29)
DX: F10.230 Alcohol dependence with withdrawal, uncomplicated (principal); F43.10 Post-traumatic stress disorder, unspecified; F31.9 Bipolar disorder, unspecified; F19.94 Other psychoactive substance use, unspecified with psychoactive substance-induced mood disorder; G47.00 Insomnia, unspecified; J45.909 Unspecified asthma, uncomplicated; Z87.828 Personal history of other (healed) physical injury and trauma; Z56.0 Unemployment, unspecified; Z59.00 Homelessness unspecified
CPT/HCPCS: 36415; 80053; 80305; 80307; 82140; 85027; 86780

== ENCOUNTER 2023-12-16 20:51 | Inpatient (IN) | payer OTHER ==
[2023-12-16 22:34] VITALS: BMI 22.8
[2023-12-16] MEDS: LORazepam 2 MG/ML SDV VIAL IM ONE (23:26)
[2023-12-16] MEDS ORDERED: BISMUTH SUBSALICYLATE 524 MG/30 ML PO PRN (23:46)
[2023-12-16] MEDS ORDERED: NALOXONE HCL 0.4 MG/ML VIAL IM PRN (23:46)
[2023-12-16] MEDS ORDERED: BENZONATATE 200 MG CAPSULE PO PRN (23:46)
[2023-12-16] MEDS ORDERED: MAGNESIUM HYDROX 2400MG/30ML ORAL SUSPENSION 30 ML CUP PO PRN (23:46)
[2023-12-16] MEDS ORDERED: POLYETHYLENE GLYCOL (HEALTHYLAX) 3350 17 GM PACKET PO PRN (23:46)
[2023-12-16] MEDS ORDERED: MAG HYDROX/AL HYDROX/SIMETH 30 ML UNIT-DOSE CUP PO PRN (23:46)
[2023-12-16] MEDS ORDERED: IBUPROFEN 400 MG TABLET (FP) PO PRN (23:46)
[2023-12-16] MEDS ORDERED: LOPERAMIDE HCL 2 MG CAPSULE PO PRN (23:46)
[2023-12-16] MEDS ORDERED: guaiFENesin 600 MG TABLET.ER (FP) PO PRN (23:46)
[2023-12-16] MEDS ORDERED: BENZOCAINE/MENTHOL (CHLORASEPTIC ) LOZENGE MM PRN (23:46)
[2023-12-16] MEDS ORDERED: DICYCLOMINE HCL 10 MG CAPSULE PO PRN (23:46)
[2023-12-16] MEDS ORDERED: ACETAMINOPHEN 325 MG TABLET (FP) PO PRN (23:46)
[2023-12-16] MEDS ORDERED: NALOXONE (NARCAN) HCL 4 MG/0.1 ML SPRAY NS PRN (23:46)
[2023-12-17] MEDS ORDERED: chlordiazePOXIDE HCL 25 MG CAPSULE ONE (01:38)
[2023-12-17] MEDS ORDERED: hydrOXYzine PAMOATE 25 MG CAPSULE (FP) PO ONE (01:38)
[2023-12-17] MEDS: chlordiazePOXIDE HCL 25 MG CAPSULE PO PRN (01:40)
[2023-12-17] MEDS: hydrOXYzine PAMOATE 25 MG CAPSULE (FP) PO PRN (01:41)
[2023-12-17] MEDS: chlordiazePOXIDE HCL 25 MG CAPSULE PO SCH (05:50)
[2023-12-17] MEDS: PRENATAL VITAMINS W/ FOLIC ACID TABLET (FP) PO SCH (10:34)
[2023-12-17 14:21] LABS: HEMATOCRIT 40.1 % (35.4-49); HEMOGLOBIN 12.9 GM/dL (11.7-16.9); MCH 27.7 pg (25.7-33.7); MCHC 32.1 g/dl (32.0-35.9); MEAN CELL VOLUME 86.4 fl (80-96); PLATELET COUNT 72 10^3/uL (134-434); RBC 4.64 M/mm3 (4.00-5.60); RDW 14.7 % (11.9-15.9); WHITE BLOOD COUNT 3.5 K/mm3 (4.0-10.0)
[2023-12-17 15:15] LABS: CHLORIDE 96 mmol/L (98-107); POTASSIUM 3.4 mmol/L (3.5-5.1); SODIUM 134 mmol/L (136-145)
[2023-12-17 15:23] LABS: BLOOD UREA NITROGEN 11.9 mg/dL (7-18)
[2023-12-17 15:24] LABS: ALBUMIN 3.5 g/dl (3.4-5.0); CALCIUM 9.4 mg/dL (8.5-10.1)
[2023-12-17 15:25] LABS: ANION GAP 8 mmol/L (4-13); CO2 31 mmol/L (21-32); GLUCOSE,RANDOM 92 mg/dL (74-106)
[2023-12-17 15:27] LABS: SGPT/ALT 80 U/L (13-61)
[2023-12-17 15:28] LABS: BILIRUBIN,TOTAL 1.2 mg/dL (0.2-1); CREATININE 0.8 mg/dL (0.55-1.3); SGOT/AST 163 U/L (15-37)
[2023-12-17 15:29] LABS: TOT PROT 6.7 g/dl (6.4-8.2)
[2023-12-17 15:30] LABS: ALK PHOS 100 U/L (45-117)
[2023-12-17] MEDS: POTASSIUM CHLORIDE ORAL LIQUID 20 MEQ/15 ML PO ONE (19:01)
[2023-12-17] MEDS: THIAMINE 100 MG TABLET PO SCH (22:14)
[2023-12-17] MEDS: MELATONIN 5 MG TABLETS PO SCH (22:14)
[2023-12-18] MEDS: chlordiazePOXIDE HCL 25 MG CAPSULE PO SCH (05:57)
[2023-12-18] MEDS: IBUPROFEN 600 MG TABLET (FP) PO PRN (09:29)
[2023-12-18] MEDS: BISACODYL 5 MG TABLET.DR (FP) PO ONE (11:19)
[2023-12-18 14:50] LABS: POTASSIUM 3.6 mmol/L (3.5-5.1)
[2023-12-18 14:54] LABS: BLOOD UREA NITROGEN 10.1 mg/dL (7-18); CALCIUM 9.5 mg/dL (8.5-10.1)
[2023-12-18 14:57] LABS: CREATININE 0.7 mg/dL (0.55-1.3)
[2023-12-18] MEDS: ONDANSETRON *ODT* 4 MG TABLET SL PRN (19:15)
[2023-12-18] MEDS: DOCUSATE SODIUM 100 MG CAPSULE (FP) PO SCH (22:36)
[2023-12-18] MEDS: METHOCARBAMOL 500 MG TABLET PO PRN (22:36)
[2023-12-19] MEDS ORDERED: chlordiazePOXIDE HCL 10 MG CAPSULE PO PRN
[2023-12-19] MEDS: chlordiazePOXIDE HCL 10 MG CAPSULE PO SCH (05:49)
[2023-12-19] MEDS: SELENIUM SULFIDE 2.25% 180 ML SHAMPOO TP SCH (15:58)
[2023-12-20] MEDS: chlordiazePOXIDE HCL 10 MG CAPSULE PO SCH (05:41)
[2023-12-21] MEDS: chlordiazePOXIDE HCL 10 MG CAPSULE PO ONE (06:00)
[2023-12-21 06:26] VITALS: PULSE 90; TEMP 97.7
[2023-12-21 09:51] VITALS: BP 144/90; RESP 17
== END 2023-12-21 11:14 | disposition home or self-care (01) | DRG 775 ==
LOC: YASAS 20:51 → Y3N 23:56
PROVIDERS: ADMIT Allergy & Immunology; ATTEND Surgery
PROC: HZ2ZZZZ Detoxification Services for Substance Abuse Treatment (ICD-10-PCS; principal; 2023-12-16)
DX: F10.230 Alcohol dependence with withdrawal, uncomplicated (principal); F32.A Depression, unspecified; F41.9 Anxiety disorder, unspecified; E87.6 Hypokalemia; D72.819 Decreased white blood cell count, unspecified; J45.909 Unspecified asthma, uncomplicated
CPT/HCPCS: 36415; 80048; 80053; 80305; 80307; 85027; 86780; 93005; 93010; Q0162

== ENCOUNTER 2024-06-10 09:19 | Inpatient (IN) | payer OTHER ==
[2024-06-10 09:48] VITALS: BMI 24.0
[2024-06-10] MEDS ORDERED: BENZONATATE 200 MG CAPSULE PO PRN (10:10)
[2024-06-10] MEDS ORDERED: LOPERAMIDE HCL 2 MG CAPSULE PO PRN (10:10)
[2024-06-10] MEDS ORDERED: guaiFENesin 600 MG TABLET.ER (FP) PO PRN (10:10)
[2024-06-10] MEDS ORDERED: BISMUTH SUBSALICYLATE 262 MG/15 ML BTL PO PRN (10:10)
[2024-06-10] MEDS ORDERED: DICYCLOMINE HCL 10 MG CAPSULE PO PRN (10:10)
[2024-06-10] MEDS ORDERED: POLYETHYLENE GLYCOL (HEALTHYLAX) 3350 17 GM PACKET PO PRN (10:10)
[2024-06-10] MEDS ORDERED: MAGNESIUM HYDROX 2400MG/30ML ORAL SUSPENSION 30 ML CUP PO PRN (10:10)
[2024-06-10] MEDS ORDERED: BENZOCAINE/MENTHOL (CHLORASEPTIC ) LOZENGE MM PRN (10:10)
[2024-06-10] MEDS ORDERED: MAG HYDROX/AL HYDROX/SIMETH 30 ML UNIT-DOSE CUP PO PRN (10:10)
[2024-06-10] MEDS ORDERED: NALOXONE (NARCAN) HCL 4 MG/0.1 ML SPRAY NS PRN (10:10)
[2024-06-10] MEDS: ONDANSETRON *ODT* 4 MG TABLET SL PRN (10:57)
[2024-06-10] MEDS ORDERED: chlordiazePOXIDE HCL 25 MG CAPSULE ONE (11:09)
[2024-06-10] MEDS ORDERED: propRANOLol HCL 10 MG TABLET ONE (11:09)
[2024-06-10] MEDS: propRANOLol HCL 10 MG TABLET PO ONE (11:10)
[2024-06-10] MEDS: chlordiazePOXIDE HCL 25 MG CAPSULE PO SCH (11:10)
[2024-06-10] MEDS: BACITRACIN 0.9 GM PACKET TP SCH (11:45)
[2024-06-10] MEDS: VITAMINS A AND D TOPICAL OINTMENT TP SCH (11:45)
[2024-06-10] MEDS: METHOCARBAMOL 500 MG TABLET PO PRN (13:12)
[2024-06-10] MEDS: IBUPROFEN 600 MG TABLET (FP) PO PRN (13:12)
[2024-06-10] MEDS: chlordiazePOXIDE HCL 25 MG CAPSULE PO PRN (15:09)
[2024-06-10] MEDS: MELATONIN 5 MG TABLETS PO SCH (22:25)
[2024-06-10] MEDS: THIAMINE 100 MG TABLET PO SCH (22:26)
[2024-06-11] MEDS: ACETAMINOPHEN 325 MG TABLET (FP) PO PRN (03:29)
[2024-06-11] MEDS: PRENATAL VITAMINS W/ FOLIC ACID TABLET (FP) PO SCH (10:29)
[2024-06-11 11:31] LABS: HEMATOCRIT 39.2 % (35.4-49); HEMOGLOBIN 13.1 GM/dL (11.7-16.9); MCH 28.4 pg (25.7-33.7); MCHC 33.4 g/dl (32.0-35.9); MEAN CELL VOLUME 84.9 fl (80-96); MEAN PLT VOLUME 9.1 fl (7.5-11.1); PLATELET COUNT 217 10^3/uL (134-434); RBC 4.62 M/mm3 (4.00-5.60); RDW 15.9 % (11.9-15.9); WHITE BLOOD COUNT 5.5 K/mm3 (4.0-10.0)
[2024-06-11 11:38] LABS: POTASSIUM 4.1 mmol/L (3.5-5.1)
[2024-06-11 11:54] LABS: ALBUMIN 3.2 g/dl (3.4-5.0); BLOOD UREA NITROGEN 15.9 mg/dL (7-18); CALCIUM 9.1 mg/dL (8.5-10.1)
[2024-06-11 11:57] LABS: CREATININE 0.7 mg/dL (0.55-1.3)
[2024-06-11 11:58] LABS: TOT PROT 6.8 g/dl (6.4-8.2)
[2024-06-11] MEDS: QUEtiapine FUMARATE 50 MG TABLET PO SCH (22:09)
[2024-06-12] MEDS: chlordiazePOXIDE HCL 25 MG CAPSULE PO SCH (05:39)
[2024-06-12] MEDS: hydrOXYzine PAMOATE 25 MG CAPSULE (FP) PO PRN (09:25)
[2024-06-13] MEDS: chlordiazePOXIDE HCL 10 MG CAPSULE PO PRN (01:26)
[2024-06-13] MEDS: chlordiazePOXIDE HCL 10 MG CAPSULE PO SCH (05:31)
[2024-06-13] MEDS: SELENIUM SULFIDE 2.25% 180 ML SHAMPOO TP SCH (13:50)
[2024-06-14] MEDS: chlordiazePOXIDE HCL 10 MG CAPSULE PO SCH (05:20)
[2024-06-14] MEDS: hydrOXYzine PAMOATE 50 MG CAPSULE (FP) PO ONE (12:07)
[2024-06-14] MEDS: LORazepam 2 MG/ML SDV VIAL IM ONE (13:35)
[2024-06-15] MEDS: IBUPROFEN 400 MG TABLET (FP) PO PRN (05:35)
[2024-06-15] MEDS: chlordiazePOXIDE HCL 10 MG CAPSULE PO ONE (05:35)
[2024-06-15 10:07] VITALS: BP 133/86; PULSE 94; RESP 17; TEMP 96.8
== END 2024-06-15 09:35 | disposition home or self-care (01) | DRG 775 ==
LOC: YASAS 09:19 → Y3N 11:02
PROVIDERS: ADMIT Allergy & Immunology; ATTEND Allergy & Immunology
PROC: HZ2ZZZZ Detoxification Services for Substance Abuse Treatment (ICD-10-PCS; principal; 2024-06-10)
DX: F10.230 Alcohol dependence with withdrawal, uncomplicated (principal); F19.282 Other psychoactive substance dependence with psychoactive substance-induced sleep disorder; F19.24 Other psychoactive substance dependence with psychoactive substance-induced mood disorder; F31.9 Bipolar disorder, unspecified; F43.10 Post-traumatic stress disorder, unspecified; F41.9 Anxiety disorder, unspecified; J45.20 Mild intermittent asthma, uncomplicated; Z56.0 Unemployment, unspecified; Z59.00 Homelessness unspecified
CPT/HCPCS: 36415; 80053; 80305; 80307; 85027; 86780; 93005; 93010; Q0162